=== PATIENT | female | born 1955 | race Caucasian/White ===

== ENCOUNTER 2016-08-28 16:50 | Emergency (ER) | payer BC ==
[~2016-08-28] VITALS: Ht 162.6 cm; Wt 130.1 kg
[2016-08-28] MEDS ORDERED: PAXI10TA12 PO (17:08)
[2016-08-28] MEDS ORDERED: ATEN25TA PO (17:08)
[2016-08-28 18:03] VITALS: BP 156/67
--- NOTE | 2016-08-28 18:28 | REP ---
REASON: Pain after trauma. COMPARISON: None. There is tricompartmental marginal osteophytosis with mild tricompartmental narrowing. There is no evidence of an acute fracture. IMPRESSION: Chronic changes as described above. Signed by Néstor Lindsay DO 08/28/2016 06:29 P
== END 2016-08-28 18:05 | disposition home or self-care (01) ==
LOC: M ED 16:50
DX: S83.92XA Sprain of unspecified site of left knee, initial encounter (principal); S80.02XA Contusion of left knee, initial encounter; W19.XXXA Unspecified fall, initial encounter; Y92.099 Unspecified place in other non-institutional residence as the place of occurrence of the external cause; Y93.89 Activity, other specified; Y99.9 Unspecified external cause status